=== PATIENT | male | born 1980 | race Caucasian/White ===

== ENCOUNTER 2019-02-04 19:31 | Emergency (ER) | payer MEDICAID ==
[~2019-02-04] VITALS: Ht 165.1 cm; Wt 84.8 kg
[2019-02-04 19:34] VITALS: BP 154/102; Ht 165.1 cm; Wt 84.8 kg
== END 2019-02-04 21:05 | disposition home or self-care (01) ==
LOC: ED 19:31
DX: H66.92 Otitis media, unspecified, left ear (principal); J06.9 Acute upper respiratory infection, unspecified

== ENCOUNTER 2019-02-17 19:01 | Emergency (ER) | payer MEDICAID ==
[~2019-02-17] VITALS: Ht 165.1 cm; Wt 85.8 kg
[2019-02-17 19:19] VITALS: Ht 165.1 cm; Wt 85.8 kg
[2019-02-17 20:26] VITALS: BP 138/82
== END 2019-02-17 20:26 | disposition home or self-care (01) ==
LOC: ED 19:01
DX: H72.92 Unspecified perforation of tympanic membrane, left ear (principal); E78.00 Pure hypercholesterolemia, unspecified